=== PATIENT | male | born 1950 | race Asian ===

== ENCOUNTER 2017-01-06 14:54 | Outpatient (CLI) | payer OTHER ==
[~2017-01-06 14:54] MED LIST: AMLO2.5T PO; BENICAR HCT1 TAB PO; CALC667T2 PO; DAPSONE100 MG OR; DOCU100C10 PO; FERROUS FUMARA325 MG PO; IRON325 MG PO; MEGESTROL AC20 MG OR; WARFARIN7.5 MG PO; ZANTAC 75 PO; ZANTAC300 MG PO
== END 2017-01-06 15:55 | disposition home or self-care (01) ==
LOC: LABW 14:54
DX: R94.5 Abnormal results of liver function studies (principal)
CPT/HCPCS: 36415; 80074

== ENCOUNTER 2017-01-24 02:22 | Outpatient (CLI) | payer OTHER | END 2017-01-24 02:25 | disposition short-term general hospital (02) | LOC: AMB 02:22 | DX: R06.09 Other forms of dyspnea (principal) | CPT/HCPCS: A0425; A0427 ==

== ENCOUNTER 2017-01-24 02:30 | Emergency (ER) | payer OTHER ==
[~2017-01-24] VITALS: Ht 172.7 cm; Wt 72.6 kg
[2017-01-24 04:01] LABS: PLATELET COUNT 171 K/uL (142-355)
[2017-01-24 05:54] VITALS: BP 152/85; TEMP 97.9
== END 2017-01-24 05:56 | disposition short-term general hospital (02) ==
LOC: ED 02:30
PROC: 0T9B70Z Drainage of Bladder with Drainage Device, Via Natural or Artificial Opening (ICD-10-PCS; principal; 2017-01-24)
DX: R06.09 Other forms of dyspnea (principal); J96.00 Acute respiratory failure, unspecified whether with hypoxia or hypercapnia; I50.9 Heart failure, unspecified; J81.1 Chronic pulmonary edema; N19 Unspecified kidney failure; R00.0 Tachycardia, unspecified
CPT/HCPCS: 36415; 36600; 80053; 82805; 85027; 96374; 96375; 99285; J1940; J2270; J3490

== ENCOUNTER 2017-01-24 06:15 | Outpatient (CLI) | payer OTHER | END 2017-01-24 07:14 | disposition short-term general hospital (02) | LOC: AMB 06:15 | DX: R06.09 Other forms of dyspnea (principal); J96.00 Acute respiratory failure, unspecified whether with hypoxia or hypercapnia; I50.9 Heart failure, unspecified; J81.1 Chronic pulmonary edema; N19 Unspecified kidney failure; R00.0 Tachycardia, unspecified | CPT/HCPCS: A0425; A0427 ==